=== PATIENT | male | born 2000 | race Caucasian/White ===

== ENCOUNTER 2022-09-03 13:23 | Emergency (ER) | payer SELFPAY ==
[~2022-09-03] VITALS: Ht 172.7 cm; Wt 79.4 kg
--- NOTE | 2022-09-03 13:35 | NUR ---
JANNET SARMIENTO "Found in [facility] Lot- Given Narcan spray and IV woke up- agitated- was given Versed 10mg IM"
--- NOTE | 2022-09-03 14:30 | NUR ---
TAKEN TO CT
[2022-09-03 14:43] LABS: BASOPHILS % (AUTO) 0.1 % (0.0-2.0); EOSINOPHILS % (AUTO) 0.6 % (0.0-6.0); HEMATOCRIT 45 % (39-51); HEMOGLOBIN 14.5 g/dL (13.5-17.5); LYMPHOCYTES # (AUTO) 0.8 K/uL (0.8-4.8); LYMPHOCYTES % (AUTO) 4.8 % (20.0-44.0); MEAN CORPUSCULAR HGB CONC 32 g/dl (31.0-36.0); MEAN CORPUSCULAR VOLUME 99 fL (80-96); MONOCYTES # (AUTO) 0.9 K/uL (0.1-1.30); MONOCYTES % (AUTO) 5.7 % (2.0-12.0); NEUTROPHILS # (AUTO) 14.4 K/uL (1.8-8.9); NEUTROPHILS % (AUTO) 88.8 % (43.0-81.0); PLATELET COUNT (AUTO) 221 K/uL (150-450); RED BLOOD CELL COUNT(AUTO) 4.59 MIL/uL (4.5-6.0); WHITE BLOOD COUNT (AUTO) 16.2 K/uL (4.3-11.0)
[2022-09-03 14:55] LABS: ALANINE AMINOTRANSFERASE 32 U/L (12-78); ALBUMIN 3.2 g/dL (3.4-5.0); ALCOHOL, BLOOD < 3 mg/dL (0-0); ALKALINE PHOSPHATASE 90 U/L (46-116); ASPARTATE AMINOTRANSFERASE 42 U/L (15-37); BILIRUBIN,DIRECT 0.1 mg/dL (0.0-0.2); BILIRUBIN,TOTAL 0.6 mg/dL (0.2-1.0); CALCIUM, SERUM 8.3 mg/dL (8.5-10.1); CARBON DIOXIDE 24 mmol/L (21-32); CHLORIDE 102 mmol/L (98-107); CREATININE 1.3 mg/dL (0.6-1.3); GLUCOSE 82 mg/dL (74-106); POTASSIUM 4.2 mmol/L (3.5-5.1); SODIUM SERUM 136 mmol/L (136-145); TOTAL PROTEIN, SERUM 7.2 g/dL (6.4-8.2); UREA NITROGEN, BLOOD 20 mg/dL (7-18)
--- NOTE | 2022-09-03 15:07 | NUR ---
URINE SAMPLE OBTAINED SENT TO LAB
[2022-09-03] MEDS ORDERED: ONDANSETRON HCL/PF 4 MG/2 ML VIAL ONE (20:44)
[2022-09-03] MEDS: IV NS 0.9% 1,000 ML IV ONE (20:49)
[2022-09-03] MEDS: ONDANSETRON HCL/PF 4 MG/2 ML VIAL IV ONE (20:49)
--- NOTE | 2022-09-03 22:00 | NUR ---
Patient discharged to home in stable condition. Written and verbal after care instructions given. Patient verbalizes understanding of instruction.IV removed. Catheter intact and site benign. Pressure and 4x4 applied to site. No bleeding noted. Pt ambulatory with a steady gait
[2022-09-03 22:48] VITALS: BP 128/80
== END 2022-09-03 22:01 | disposition home or self-care (01) ==
LOC: ER 13:47
DX: F19.10 Other psychoactive substance abuse, uncomplicated (principal); F11.10 Opioid abuse, uncomplicated; Z59.00 Homelessness unspecified
CPT/HCPCS: 99285; 96374; 96361; 93005; 70450; 85025; 80048; 80076; 36415; 82962; 80320; 80307; J2405; J7030; G0480